=== PATIENT | male | born 1980 | race Caucasian/White ===

== ENCOUNTER → 2024-10-11 07:22 | Outpatient (REF) | payer BC, SELFPAY | LOC: RCS 07:22 | PROVIDERS: ATTENDING PHYSICIAN Internal Medicine Cardiovascular Disease; FAMILY PHYSICIAN Nurse Practitioner Adult Health | DX: R07.2 Precordial pain (principal) | CPT/HCPCS: 93017 ==

== ENCOUNTER → 2024-10-16 08:14 | Outpatient (REF) | payer BC, SELFPAY | LOC: RCS 08:14 | PROVIDERS: ATTENDING PHYSICIAN Internal Medicine Cardiovascular Disease; FAMILY PHYSICIAN Nurse Practitioner Adult Health | DX: R07.2 Precordial pain (principal); R00.2 Palpitations | CPT/HCPCS: 93306 ==